=== PATIENT | male | born 1965 | race Caucasian/White ===

== ENCOUNTER 2019-09-01 12:06 | Observation (INO) ==
[2019-09-01] MEDS ORDERED: HEPARIN SODIUM IN D5W 25,000 UNITS/500 ML BAG IV PRN (14:06)
[2019-09-01] MEDS ORDERED: XOPENEX 1.25 MG/3 ML NEBULE NEB PRN (14:19)
[2019-09-01 14:35] LABS: BASOPHILS # (AUTO) 0.1 X10^3/uL (0.0-0.1); BASOPHILS % (AUTO) 1.4 % (0.2-1.0); EOSINOPHILS # (AUTO) 0.1 x10^3/uL (0.0-0.2); EOSINOPHILS % (AUTO) 2.4 % (0.9-2.9); HEMATOCRIT 47.6 % (42.0-54.0); HEMOGLOBIN 16.7 g/dL (13.5-18.0); LYMPHOCYTES # (AUTO) 1.6 X10^3/uL (1.3-2.9); LYMPHOCYTES % (AUTO) 37.7 % (21.0-51.0); MEAN CORPUSCULAR HEMOGLOBIN 32.9 pg (27.0-34.0); MEAN CORPUSCULAR HGB CONC 35.1 g/dL (33.0-35.0); MEAN CORPUSCULAR VOLUME 93.9 fL (80.0-100.0); MONOCYTES # (AUTO) 0.6 x10^3/uL (0.3-0.8); MONOCYTES % (AUTO) 14.3 % (0.0-13.0); NEUTROPHILS # (AUTO) 1.9 x10^3/uL (2.2-4.8); NEUTROPHILS % (AUTO) 44.2 % (42.0-75.0); PLATELET COUNT 151 X10^3/uL (150.0-450.0); RED BLOOD COUNT 5.07 X10^6/uL (4.7-6.0); RED CELL DISTRIBUTION WIDTH 13.8 % (11.6-16.5); WHITE BLOOD COUNT 4.3 X10^3/uL (3.6-10.0)
[2019-09-01 14:45] VITALS: BMI 26.5
[2019-09-01 14:55] LABS: ALANINE AMINOTRANSFERASE 31 Units/L (12-78); ALBUMIN 4.1 g/dL (3.4-5.0); ALKALINE PHOSPHATASE 89 Units/L (46-116); ASPARTATE AMINO TRANSFERASE 23 Units/L (15-37); BLOOD UREA NITROGEN 10 mg/dL (7-18); CALCIUM 8.5 mg/dL (8.5-10.1); CARBON DIOXIDE 28.9 mmol/L (21-32); CHLORIDE 101 mmol/L (98-107); CKMB % 1.5 % (<4); COR NA(FOR HYPERGLY) 141 mmol/L (136-145); CREATINE KINASE 65 Units/L (39-308); SODIUM 137 mmol/L (136-145); TOTAL PROTEIN 7.6 g/dL (6.4-8.2); TROPONIN I < 0.02 ng/mL (0-1.5); eGFR NON BLACK RACES > 60 (>60)
[2019-09-01] MEDS: NS 1000 ML 1,000 ML IV SCH (15:08)
[2019-09-01] MEDS: HumuLIN R SUBCUT PRN (16:13)
[2019-09-01] MEDS: MUCOMYST 20% 200 MG/ML PO SCH ×2 (17:01→20:15)
[2019-09-01] MEDS ORDERED: HEPARIN SODIUM INJ 5000 UNITS IVP ONE (17:20)
[2019-09-01] MEDS ORDERED: XOPENEX 1.25 MG/3 ML NEBULE NEB SCH (18:00)
[2019-09-01 18:49] LABS: CKMB % 1.6 % (<4); CREATINE KINASE 63 Units/L (39-308); CREATINE KINASE MB < 1.0 ng/mL (0-4.0); TROPONIN I < 0.02 ng/mL (0-1.5)
[2019-09-01] MEDS: SNACK - Diabetic Appropriate PO SCH (21:47)
--- NOTE | 2019-09-01 21:50 | RAD ---
HISTORYCHEST PAIN, SOBSTUDYCHEST, 1 [id number]/2020FINDINGSThe heart is normal. The pulmonary vessels are normal. The lungs are mildly hyperinflated. No consolidation or effusion is seenIMPRESSIONStable chest with no acute abnormality seen.Electronically signed by: IGLESIA ARELLANO (Sep 01, 2019 21:49:02)
[2019-09-01 22:44] LABS: CKMB % 1.6 % (<4); CREATINE KINASE 61 Units/L (39-308); CREATINE KINASE MB < 1.0 ng/mL (0-4.0); TROPONIN I < 0.02 ng/mL (0-1.5)
[2019-09-02 03:32] LABS: BASOPHILS # (AUTO) 0.1 X10^3/uL (0.0-0.1); BASOPHILS % (AUTO) 1.4 % (0.2-1.0); EOSINOPHILS # (AUTO) 0.2 x10^3/uL (0.0-0.2); EOSINOPHILS % (AUTO) 4.5 % (0.9-2.9); HEMOGLOBIN 16.6 g/dL (13.5-18.0); LYMPHOCYTES # (AUTO) 2.2 X10^3/uL (1.3-2.9); LYMPHOCYTES % (AUTO) 50.3 % (21.0-51.0); MEAN CORPUSCULAR HEMOGLOBIN 33.1 pg (27.0-34.0); MEAN CORPUSCULAR HGB CONC 35.4 g/dL (33.0-35.0); MEAN CORPUSCULAR VOLUME 93.6 fL (80.0-100.0); MEAN PLATELET VOLUME 9.1 fL (7.4-11.0); MONOCYTES # (AUTO) 0.5 x10^3/uL (0.3-0.8); MONOCYTES % (AUTO) 12.1 % (0.0-13.0); NEUTROPHILS # (AUTO) 1.4 x10^3/uL (2.2-4.8); NEUTROPHILS % (AUTO) 31.7 % (42.0-75.0); PLATELET COUNT 140 X10^3/uL (150.0-450.0); RED BLOOD COUNT 5.02 X10^6/uL (4.7-6.0); WHITE BLOOD COUNT 4.3 X10^3/uL (3.6-10.0)
[2019-09-02] MEDS: NS 1000 ML 1,000 ML IV SCH ×2 (03:35→18:30)
[2019-09-02 03:43] LABS: ALANINE AMINOTRANSFERASE 26 Units/L (12-78); ALBUMIN 3.8 g/dL (3.4-5.0); ALKALINE PHOSPHATASE 83 Units/L (46-116); ASPARTATE AMINO TRANSFERASE 22 Units/L (15-37); BLOOD UREA NITROGEN 11 mg/dL (7-18); CALCIUM 8.5 mg/dL (8.5-10.1); CARBON DIOXIDE 26.9 mmol/L (21-32); CHLORIDE 105 mmol/L (98-107); COR NA(FOR HYPERGLY) 141 mmol/L (136-145); CREATININE 1.04 mg/dL (0.70-1.30); SODIUM 140 mmol/L (136-145); TOTAL PROTEIN 7.1 g/dL (6.4-8.2); eGFR NON BLACK RACES > 60 (>60)
[2019-09-02] MEDS ORDERED: HEPARIN SODIUM INJ 5000 UNITS IVP ONE ×2 (03:59→10:09)
[2019-09-02] MEDS ORDERED: HEPARIN SODIUM INJ 5000 UNITS ONE (04:06)
[2019-09-02] MEDS: MUCOMYST 20% 200 MG/ML PO SCH ×2 (08:47→20:57)
[2019-09-02] MEDS: HumuLIN R SUBCUT PRN (11:12)
--- NOTE | 2019-09-02 13:58 | CT ---
HISTORYCHEST PAIN SOB COUGHINGSTUDYCTA CHESTCOMPARISONNone availableTECHNIQUEMultiple axial images of the chest were obtained from the thoracic inlet to the upper abdomen after the administration of IV contrast. Dose reduction techniques including Automated Exposure Control (AEC) and adjustment of mA and kV were utilized.FINDINGS[The thyroid gland is normal. Heart size is normal. No pericardial effusion. Mild calcified atherosclerotic disease of the LAD. Thoracic aorta is normal in caliber and configuration. Shotty, nonenlarged prevascular and paratracheal lymph nodes are noted. Shotty nonenlarged subcarinal and right hilar lymph nodes are also noted. Adequate opacification of pulmonary arteries is noted with normal caliber of the pulmonary artery. No filling defect to suggest PTE. No focal airspace consolidation, pleural effusion or pneumothorax. No acute inflammatory process within the upper abdomen.] No acute osseous abnormality.IMPRESSIONNo PTE or acute cardiopulmonary abnormality.Shotty mediastinal and right hilar lymph nodes are nonspecific.Electronically signed by: JOHN FALL (Sep 02, 2019 13:57:09)
--- NOTE | 2019-09-02 18:13 | DR.UPDATE ---
H&P Update History and Physical Update: History and Physical reviewed and patient examined. Changes noted: Yes with the following: PRESENTED TO THE OFFICE YESTERDAY WITH COMPLAINTS OF SHORTNESS OF BREATH, COUGH, AND CHEST PAIN. HE REPORTS THAT A PRODUCTIVE COUGH STARTED TWO DAYS AGO, HOWEVER, SHORTNESS OF BREATH STARTED ONE MONTH AGO. WE ADMITTED PATIENT FOR FURTHER EVALUATION AND TREATMENT OF CHEST PAIN, SOB, AND COUGH. ON ARRIVAL TO THE HOSPITAL, VITALS WERE 98.7-95-25-96%-113/76. LABS WERE OBTAINED. GLUCOSE 269, OTHERWISE, HE IS HEMODYNAMICALLY STABLE. CARDIAC ENZYMES WERE WITHIN NORMAL LIMITS. A CHEST XRAY WAS OBTAINED AND REVEALED: STABLE CHEST WITH NO ACUTE ABNORMALITY SEEN. EKG REVEALED: SINUS RHYHTHM WITH HR 95. HE WAS PLACED IN THE ICU ON A HEPARIN DRIP, HUMULIN R SLIDING SCALE, RESPIRATORY TX, AND NS AT 80 ML/HR. WE WILL OBTAIN A CHEST CTA TO RULE OUT PE AND AN ECHO. OTHERWISE, WE PLAN TO FOLLOW UP WITH AM LABS AND CONTINUE TO MONITOR. Prescription drug monitoring program results: PDMP reviewed and no concerns identified H&P Reviewed: Yes Patient was examined?: Yes
[2019-09-02] MEDS: SNACK - Diabetic Appropriate PO SCH (20:57)
[2019-09-03 05:22] LABS: BASOPHILS % (AUTO) 0.7 % (0.2-1.0); EOSINOPHILS # (AUTO) 0.2 x10^3/uL (0.0-0.2); EOSINOPHILS % (AUTO) 3.8 % (0.9-2.9); HEMATOCRIT 44.6 % (42.0-54.0); LYMPHOCYTES # (AUTO) 1.6 X10^3/uL (1.3-2.9); LYMPHOCYTES % (AUTO) 39.5 % (21.0-51.0); MEAN CORPUSCULAR HEMOGLOBIN 33.2 pg (27.0-34.0); MEAN CORPUSCULAR HGB CONC 35.8 g/dL (33.0-35.0); MEAN CORPUSCULAR VOLUME 92.6 fL (80.0-100.0); MEAN PLATELET VOLUME 9.4 fL (7.4-11.0); MONOCYTES # (AUTO) 0.5 x10^3/uL (0.3-0.8); MONOCYTES % (AUTO) 11.9 % (0.0-13.0); NEUTROPHILS # (AUTO) 1.8 x10^3/uL (2.2-4.8); NEUTROPHILS % (AUTO) 44.1 % (42.0-75.0); PLATELET COUNT 133 X10^3/uL (150.0-450.0); RED BLOOD COUNT 4.82 X10^6/uL (4.7-6.0); RED CELL DISTRIBUTION WIDTH 14.1 % (11.6-16.5)
[2019-09-03 05:38] LABS: ALANINE AMINOTRANSFERASE 33 Units/L (12-78); ALBUMIN 3.7 g/dL (3.4-5.0); ALKALINE PHOSPHATASE 91 Units/L (46-116); ASPARTATE AMINO TRANSFERASE 28 Units/L (15-37); BLOOD UREA NITROGEN 11 mg/dL (7-18); CALCIUM 8.7 mg/dL (8.5-10.1); CARBON DIOXIDE 28.2 mmol/L (21-32); CHLORIDE 104 mmol/L (98-107); COR NA(FOR HYPERGLY) 141 mmol/L (136-145); CREATININE 1.02 mg/dL (0.70-1.30); SODIUM 139 mmol/L (136-145); TOTAL PROTEIN 6.9 g/dL (6.4-8.2); eGFR NON BLACK RACES > 60 (>60)
[2019-09-03] MEDS: NS 1000 ML 1,000 ML IV SCH (06:15)
--- NOTE | 2019-09-03 06:16 | RAD ---
HISTORYShortness of breathSTUDYCHEST, 1 [facility]COMS[facility] 2019FINDINGSThe heart is within normal limits in size. The jaime are normal. The lungs are hypoinflated but free of acute alveolar infiltrates. No pleural effusions are identified. Bony thorax is unremarkable.IMPRESSIONLungs hypoinflated but clearElectronically signed by: BLANCA BENSON (Sep 03, 2019 06:14:57)
[2019-09-03] MEDS: MUCOMYST 20% 200 MG/ML PO SCH (08:21)
[2019-09-03 10:11] VITALS: BP 128/90
== END 2019-09-03 11:30 | disposition home or self-care (01) ==
LOC: ICU
PROVIDERS: ADMIT Internal Medicine; ATTEND Internal Medicine
DX: R07.89 Other chest pain; R79.1 Abnormal coagulation profile; E11.65 Type 2 diabetes mellitus with hyperglycemia; R06.02 Shortness of breath; R05 Cough
CPT/HCPCS: 36415; 71010; 71045; 71275; 80053; 82550; 82553; 83880; 84484; 85025; 85378; 85610; 85730; 93005; 93306; 96360; 96361; 96372; A4216; A4222; G0378; J1644; J1815; J7030